=== PATIENT | male | born 2000 | race Caucasian/White ===

== ENCOUNTER 2024-02-29 12:46 | Emergency (ER) | payer SELFPAY ==
[2024-02-29] MEDS: traMADol 50 MG Tab PO STA (14:46)
== END 2024-02-29 14:50 | disposition home or self-care (01) ==
LOC: MW.ED 12:46
DX: B08.4 Enteroviral vesicular stomatitis with exanthem (principal); Z75.8 Other problems related to medical facilities and other health care; Z79.899 Other long term (current) drug therapy
CPT/HCPCS: 99283; A9270

== ENCOUNTER 2024-12-17 16:37 | Emergency (ER) | payer SELFPAY | END 2024-12-17 19:26 | disposition home or self-care (01) | LOC: MW.ED 16:37 | DX: H66.92 Otitis media, unspecified, left ear (principal); J45.909 Unspecified asthma, uncomplicated; Z75.8 Other problems related to medical facilities and other health care; Z79.899 Other long term (current) drug therapy | CPT/HCPCS: 69209; 99282; 99282-25 ==

== ENCOUNTER 2025-02-10 20:21 | Emergency (ER) | payer BC ==
[2025-02-10] MEDS: Ketorolac 30 MG/ML SDV IM ONE (21:40)
[2025-02-10] MEDS: Acetaminophen 325 MG Tab PO ONE (21:41)
[2025-02-10] MEDS: Cephalexin 500 MG Cap PO ONE (21:41)
== END 2025-02-10 21:48 | disposition home or self-care (01) ==
LOC: MW.ED 20:21
DX: L03.116 Cellulitis of left lower limb (principal); J45.909 Unspecified asthma, uncomplicated; Z79.51 Long term (current) use of inhaled steroids; Z79.899 Other long term (current) drug therapy
CPT/HCPCS: 96372; 99283; A9270; J1885; 99282